=== PATIENT | male | born 2000 | race Caucasian/White ===

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

== ENCOUNTER 2019-04-05 13:41 | Emergency (ER) | payer OTHER, SELFPAY ==
[2019-04-05 13:42] VITALS: BP 141/86; PULSE 98; RESP 17; TEMP 36.8; O2SAT 95; BMI 26.1
--- NOTE | 2019-04-05 14:20 | CM.ED ---
SOCIAL WORK FORTUNATO FROM CRISIS HERE AND INFORMED THIS WORKER CRISIS WAS CALLED EARLIER THIS DAY BY PATIENT'S CHRISTIAN EDUCATION DIRECTOR, FARRAH BYRD. PATIENT VOICED HOMICIDAL IDEATION AND SUICIDAL IDEATION WITH PLAN TO HANG SELF. THIS WORKER TO FOLLOW UP WITH PHYSICIAN. MERA CARLIN, EDGE BANDING MACHINE OFFBEARER, DOCTOR OF AUDIOLOGY.
--- NOTE | 2019-04-05 14:35 | CM.ED ---
Social Work Assessment Referral Date: 04/05/19 Date of Assessment: 04/05/19 Informant: DR. TESFAYE Reason for Consult: MENTAL HEALTH, PATIENT WITH HOMICIDAL IDEATION, HEARING VOICES. Information obtained from: PATIENT, PATIENT'S MOTHER, RAUL, PATIENT'S SIGNIFICANT OTHER, DATASTAGE DEVELOPER AND SILK HANGER Living Arrangements: PATIENT LIVES HOME WITH FAMILY Supports: PATIENT HAS GOOD SUPPORT FROM MOTHER AND SIGNIFICANT OTHER. PATIENT REPORTS FOLLOWS WITH ONE [employer]Y FOR COUNSELING. Social/Family Stressors: PATIENT REPORTS THOUGHTS OF HOMICIDAL IDEATION AGAINST MULTIPLE PEOPLE. PATIENT DOES NOT GIVE NAMES. Mental Health History: PATIENT REPORTS HAS BEEN DIAGNOSED WITH SCHIZOAFFECTIVE DISORDER, DEPRESSION, ANXIETY, ALCOHOL SPECTRUM DISORDER. PATIENT REPORTS DOES NOT CURRENTLY TAKE ANY MEDICATION. Substance Abuse History:PATIENT ADMITS TO HX OF SUBSTANCE USE. Substance(s) of choice: MARIJUANA, HX OF OPIATE USE. Interventions: SOCIAL SERVICE ASSESSMENT PATIENT DENIES ANY SUICIDAL IDEATION OR PLAN TO THIS WORKER. PATIENT ADMITS TO HOMICIDAL IDEATION AND REPORTS HEARS VOICES. THIS WORKER TO ASSIST WITH PLACEMENT PATIENT IS VOLUNTARY AT THIS TIME. Assessment: PATIENT REQUESTED TO NOT SPEAK WITH CRISIS D/T PAST EXPERIENCES. DR. TESFAYE UPDATED THIS WORKER ON PATIENT'S VISIT AND REQUESTED THIS WORKER COMPLETE ASSESSMENT. PATIENT IS A 19 Y/0 MALE WHO PRESENTS WITH HOMICIDAL IDEATION. THIS WORKER MET WITH PATIENT, PATIENT'S MOTHER AND SIGNIFICANT OTHER IN ROOM. PATIENT GAVE PERMISSION TO SPEAK OPENLY WITH MOTHER AND SIGNIFICANT OTHER PRESENT. INTRODUCED ROLE AND REASON FOR REFERRAL. PATIENT ADMITS TO HOMICIDAL IDEATION AGAINST MULTIPLE PEOPLE. PATIENT DID NOT REPORT NAMES TO THIS WORKER. PATIENT DENIES ANY SUICIDAL IDEATION OR PLAN, HOWEVER, THIS WORKER WAS INFORMED BY DATASTAGE DEVELOPER PATIENT HAD REPORTED SUICIDAL IDEATION WITH PLAN TO HANG SELF WHEN CALL WAS MADE TO CRISIS EARLIER THIS DAY. PATIENT STATES HAS TRIED TO GET HELP IN THE PAST AND NOTHING HAS HELPED. PATIENT AT THIS TIME IS COOPERATIVE AND IS LOOKING FOR VOLUNTARY PLACEMENT. DISCUSSED OPTIONS. INFORMED PATIENT THIS WORKER WILL ASSIST WITH PLACEMENT. REFERRAL TO BE MADE TO [facility]. PLAN: INPATIENT PSYCH HOSPITALIZATION. REFERRAL TO [facility].
[2019-04-05 15:38] LABS: Anion Gap 10 (5-15); BUN 10 mg/dL (7-18); Calcium,Total 9.4 mg/dL (8.5-10.1); Chloride 105 mmol/L (98-107); Creatinine, Serum 0.77 mg/dL (0.70-1.30); EST Glomerular Filtration Rate 137 mL/min (>60); Est Glom Filt Rate - Afr Amer 165 mL/min (>60); Estimated Creatinine Clearance 172.94 ml/min; Glucose 97 mg/dL (74-106); Potassium 3.7 mmol/L (3.5-5.1); Sodium Level 141 mmol/L (136-145)
--- NOTE | 2019-04-05 15:40 | CM.ED ---
SOCIAL WORK THIS WORKER AWAITING LABS TO FAX TO [facility]. CALL TO [facility] TO UPDATE ON REFERRAL. BODY AND FENDER MECHANIC APPRENTICE REQUESTING ALL LABS, TOX SCREEN, FACESHEET AND ANY OTHER CLINICAL DOCUMENTATION BE FAXED TO [phone]. WILL FAX ALL INFORMATION ONCE RECEIVED. MERA CARLIN, ENVELOPE STAMPING MACHINE OPERATOR, GRAPE PRUNER.
[2019-04-05 15:46] LABS: Absolute Lymphocyte Count 2.33 X10^3/ul (0.83-4.51); Basophil# 0.02 X10^3/uL; Basophil% 0.2 % (0-1); Eosinophil# 0.18 X10^3/uL; Eosinophils% 1.9 % (0-5); Hemoglobin 17.3 g/dl (13.0-16.5); Lymphocyte # 2.33 X10^3/ul (4.0); Lymphocyte % 24.7 % (19-41); Mean Corpuscular Hgb 31.3 pg (27.0-32.0); Monocyte# 0.85 X10^3/uL; Neutrophil # 6.04 X10^3/uL (2.7-7.7); Neutrophil % 63.9 % (47-70); Platelet Count 324 K/mm3 (150-450); RBC Distribution Width CV 12.2 % (11.6-14.6); RBC Distribution Width SD 39.2 fl (35.1-43.9); Red Blood Count 5.52 M/mm3 (4.6-6.2); White Blood Count 9.5 K/mm3 (4.4-11.0)
[2019-04-05 15:47] LABS: POSITIVE COUNT NO; POSITIVE DIFFERENTIAL NO; POSITIVE MORPHOLOGY NO
--- NOTE | 2019-04-05 16:10 | CM.ED ---
SOCIAL WORK UPDATED BY PATIENT'S NURSE, PATIENT ESCALATING D/T PLAN OF CARE. PATIENT WANTING TO FIND OWN PLACEMENT OUT OF STATE. NURSE AND THIS WORKER ATTEMPTED TO DISCUSS PROCESS AND LIMITATIONS IN THE EMERGENCY DEPARTMENT. PATIENT STATING HE DOES NOT FEEL LIKE HE IS GETTING THE HELP HE ANTICIPATED WHEN HE FIRST CAME TO THE EMERGENCY DEPARTMENT. THIS WORKER PROVIDED ACTIVE LISTENING AND SUPPORT. PATIENT'S SIGNIFICANT OTHER STORMED OUT OF ROOM SLAMMING DOOR BEHIND HER. PATIENT BECOMING UPSET, CRYING AND YELLING. UPDATED PHYSICIAN ON THE ABOVE. PATIENT PINK SLIPPED. NURSE AND RESOURCE OFFICER TO UPDATE PATIENT. MERA CARLIN, BIG DATA DEVELOPER, BREWERY REPRESENTATIVE.
[2019-04-05] MEDS: Ziprasidone IM 20 MG/ML VIAL IM (16:17)
[2019-04-05 16:18] VITALS: RESP 16
--- NOTE | 2019-04-05 16:30 | ED.RN ---
PATIENT BECAME UPSET AND STARTED TO ESCALATE REGARDING HIS PLAN OF CARE IN THE ER AND FOR PLACEMENT. SW NOTIFIED AND PATIENT STATED THAT HE WAS OPEN TO THE PLAN OF [facility] ATTEMPTING TO FIND PLACEMENT AT [facility]. PATIENT THEN STARTED TO BECOME UPSET STATING THAT HE WAS BEING RUSHED, NEEDED CHOICES, AND WANTING TO GO OUT OF STATE. THIS NURSE ATTEMPTED TO EDUCATE THE PATIENT ON THE PROCESSES AND LIMITATIONS OF THE ER. PATIENT BECAME MORE AGITATED. MD NOTIFIED AND ORDER FOR JESSIE LOCKE. RESOURCE OFFICER AND THIS NURSE NOTIFIED THE PATIENT THAT HE WAS PINK SLIPPED AND AND PATIENT PROCEEDED TO CLAW AT HIS FOREHEAD AND LEAVE ABRASIONS. SW TO CONTINUE TO WORK ON PLACEMENT AND PATIENT MOVED TO ROOM NEAR NURSES STATION.
[2019-04-05 16:33] LABS: Amphetamine Urine VISTA NEGATIVE (<1000 ng/mL); Barbiturate Urine VISTA NEGATIVE (< 200 ng/mL); Benzodiazepine Urine VISTA NEGATIVE (< 200 ng/mL); Cocaine Urine VISTA NEGATIVE (< 300 ng/mL); Ecstacy Urine VISTA NEGATIVE (< 500 ng/mL); Methadone Urine VISTA NEGATIVE (< 300 ng/mL); PCP Urine VISTA NEGATIVE (< 25 ng/mL); THC Urine VISTA POSITIVE (< 50 ng/mL); Vista UDS pH Range 7
--- NOTE | 2019-04-05 17:20 | CM.ED ---
SOCIAL WORK CALL TO [facility] TO VERIFY REFERRAL RECEIVED. INFORMED PATIENT HAS BEEN PINK SLIPPED. MATCH UP PERSON STATES PRINTING OFF REFERRAL AT THIS TIME TO REVIEW. COPY OF PINK SLIPPED FAXED TO [facility] PER REQUEST. AMBROSE ZAMORA, FOOD AND BEVERAGE COORDINATOR. AMBROSE ZAMORA, FOOD AND BEVERAGE COORDINATOR.
--- NOTE | 2019-04-05 17:45 | ED.VISSUMM ---
- ER Visit Summary Date of Service: 04/05/19 Chief Complaint: Suicidal and homicidal ideation History of Present Illness: The patient is a 19 M who presents with agitation and feeling angry today. Patient states he feels angry and thinks he may hit people. Patient states he hears voices telling him to punch other people and get into a fight with the first person he sees. Patient states he is under stress with his landing signal officer. Patient states that he has smoked marijuana in the past to help with the stress however since he is on probation he is unable to do that. Currently patient states he denies any suicidal or homicidal ideations. However, it was found out that the patient called his landing signal officer earlier today and told him he was having suicidal thoughts and thinking of hanging himself. consumer safety officer called the crisis center who referred the patient to the emergency department. Physical Examination: Vital signs are stable. Patient is afebrile. Patient is in no acute distress. Oral mucosa is pink and moist. Neck is supple. Trachea is midline. There is no JVD noted. Heart was regular rate and rhythm. Lungs are clear and equal bilaterally. Abdomen is soft and nontender. Cranial nerves II through XII are intact. There are no focal motor or sensory deficits noted. Skin is warm dry. There are superficial abrasions on the forehead. There are no other lacerations or abrasions noted. Patient does have a flat affect and depressed mood. Patient has poor eye contact. Patient does admit to auditory hallucinations. Test Results: CBC, basic metabolic profile, urine tox screen, and serum alcohol level were obtained. Urine tox screen was positive for cannabinoids however the remaining labs are within normal limits. Emergency Department Course and Treatment: Patient was observed here in the emergency department. Patient became more agitated during his emergency department stay and wanted to leave. Patient was told that he needs to stay until he is evaluated by mental health. Initially patient was agreeable to voluntary admission however, he changed his mind and became more agitated. Patient was given a dose of Geodon here in the emergency department. Patient is now sleeping on reevaluation. Crisis counselor will be in to evaluate the patient. Disposition: Pending per crisis evaluation but patient will likely need to be admitted to a psychiatric facility. Impression: 1. Suicidal ideation 2. Agitation This note was generated with [employer] dictation software. It may contain incorrect words, spelling, and punctuation that were not noted in review of the chart prior to signing ED Disposition - Plan for ED Patient: Diagnosis: Suicidal ideation, Agitation Referrals: Care Physician,No Primary [Primary Care Provider] -
--- NOTE | 2019-04-05 17:50 | ED.DCSUM_ITS ---
- ER Visit Summary Date of Service: 04/05/19 Chief Complaint: Suicidal and homicidal ideation History of Present Illness: The patient is a 19 M who presents with agitation and feeling angry today. Patient states he feels angry and thinks he may hit people. Patient states he hears voices telling him to punch other people and get into a fight with the first person he sees. Patient states he is under stress with his risk officer. Patient states that he has smoked marijuana in the past to help with the stress however since he is on probation he is unable to do that. Currently patient states he denies any suicidal or homicidal ideations. However, it was found out that the patient called his risk officer earlier today and told him he was having suicidal thoughts and thinking of hanging himself. community service officer called the crisis center who referred the patient to the emergency department. Physical Examination: Vital signs are stable. Patient is afebrile. Patient is in no acute distress. Oral mucosa is pink and moist. Neck is supple. Trachea is midline. There is no JVD noted. Heart was regular rate and rhythm. Lungs are clear and equal bilaterally. Abdomen is soft and nontender. Cranial nerves II through XII are intact. There are no focal motor or sensory deficits noted. Skin is warm dry. There are superficial abrasions on the forehead. There are no other lacerations or abrasions noted. Patient does have a flat affect and depressed mood. Patient has poor eye contact. Patient does admit to auditory hallucinations. Test Results: CBC, basic metabolic profile, urine tox screen, and serum alcohol level were obtained. Urine tox screen was positive for cannabinoids however the remaining labs are within normal limits. Emergency Department Course and Treatment: Patient was observed here in the emergency department. Patient became more agitated during his emergency department stay and wanted to leave. Patient was told that he needs to stay until he is evaluated by mental health. Initially patient was agreeable to voluntary admission however, he changed his mind and became more agitated. Patient was given a dose of Geodon here in the emergency department. Patient is now sleeping on reevaluation. Crisis counselor will be in to evaluate the patient. Disposition: Pending per crisis evaluation but patient will likely need to be admitted to a psychiatric facility. Impression: 1. Suicidal ideation 2. Agitation This note was generated with [employer] dictation software. It may contain incorrect words, spelling, and punctuation that were not noted in review of the chart prior to signing ED Disposition - Plan for ED Patient: Diagnosis: Suicidal ideation, Agitation Referrals: Care Physician,No Primary [Primary Care Provider] -
--- NOTE | 2019-04-05 17:57 | CM.ED ---
SOCIAL WORK RECEIVED CALL FROM [facility]. PATIENT ACCEPTED TO [facility]. ACCEPTING PHYSICIAN DR. PARISH. NURSE TO [phone]. UPDATED STAFF, PHYSICIAN, AND PATIENT'S MOTHER, RAUL. PATIENT REMAINS SLEEPING. MERA CARLIN, HIGH SCHOOL LEARNING SUPPORT TEACHER, ANTIQUE AUTO MUSEUM MAINTENANCE WORKER.
--- NOTE | 2019-04-05 18:06 | NURSING ---
ACCEPTED AT [facility]
--- NOTE | 2019-04-05 18:11 | NURSING ---
CALLED [facility]. ETA IS 45 MIN TO 1 HR
--- NOTE | 2019-04-05 18:13 | NURSING ---
CRISIS HERE FOR PATIENT
[2019-04-05 19:07] VITALS: RESP 18
== END 2019-04-05 19:25 ==
LOC: ED 14:21
PROVIDERS: Emergency Provider Emergency Medicine
DX: R45.851 Suicidal ideations (principal); R45.850 Homicidal ideations; R45.1 Restlessness and agitation; F12.90 Cannabis use, unspecified, uncomplicated; Z72.0 Tobacco use
CPT/HCPCS: 80048; 80307; 80320; 85025; 96372; 99283; G0480; J3486

== ENCOUNTER 2019-06-27 22:31 | Emergency (ER) | payer OTHER, SELFPAY ==
[2019-06-27 22:34] VITALS: BP 136/75; PULSE 120; RESP 16; TEMP 36.8; O2SAT 98; BMI 26.4
[2019-06-27 23:03] LABS: Absolute Neutrophil Count 9.6 X10^3/uL (2.0-7.7); Basophil# 0.04 X10^3/uL; Basophil% 0.3 % (0-1); Eosinophil# 0.28 X10^3/uL; Eosinophils% 2.2 % (0-5); Hematocrit 45.9 % (40-54); Hemoglobin 15.9 g/dL (13.0-16.5); Lymphocyte % 15.8 % (19-41); Mean Corp Hgb Conc 34.6 g/dL (32-36); Mean Corpuscular Hgb 30.6 pg (27.0-32.0); Mean Corpuscular Volume 88.3 fL (80-94); Mean Platelet Vol. 9.4 fl (6.2-12.0); Monocyte# 0.74 X10^3/uL; Monocyte% 5.8 % (0-10); NRBC Flagged by Analyzer 0 % (0-5); Neutrophil # 9.55 X10^3/uL (2.7-7.7); Neutrophil % 75.6 % (47-70); Platelet Count 351 K/mm3 (150-450); RBC Distribution Width CV 11.9 % (11.6-14.6); White Blood Count 12.7 K/mm3 (4.4-11.0)
[2019-06-27 23:29] LABS: ALB/GLOB Ratio 1.4 RATIO (0.9-2.4); AST(SGOT) 12 U/L (15-37); Alanine Aminotransfer ALT/SGPT 21 U/L (16-61); Albumin, Serum 4.5 g/dL (3.2-5.0); Alcohol, Blood (Medical)-Serum < 3.0 mg/dL; Alkaline Phosphatase 96 U/L (45-117); Anion Gap 7 (5-15); BUN 9 mg/dL (7-18); BUN/Creat Ratio 8.7 RATIO (10-20); Calcium,Total 9.1 mg/dL (8.5-10.1); Chloride 111 mmol/L (98-107); Creatinine, Serum 1.04 mg/dL (0.70-1.30); EST Glomerular Filtration Rate 96 mL/min (>60); Est Glom Filt Rate - Afr Amer 117 mL/min (>60); Estimated Creatinine Clearance 128.04 ml/min; Globulin 3.3 g/dL (2.2-4.2); Glucose 104 mg/dL (74-106); Potassium 3.5 mmol/L (3.5-5.1); Protein, Total 7.8 g/dL (6.4-8.2); Sodium Level 143 mmol/L (136-145)
[2019-06-27 23:30] LABS: Vista UDS pH Range 6
[2019-06-27 23:31] VITALS: RESP 17
--- NOTE | 2019-06-27 23:39 | ED.DCSUM_ITS ---
- ER Visit Summary Date of Service: 06/27/19 Chief Complaint: Suicidal History of Present Illness: The patient is a 19 M who was pink slipped by police. The patient had made threats of suicide to his fianc?e and mother recently. Today they had to try to restrain him from hanging himself. Police found him in his garage with a rope around his neck. He did not attempt to hang himself. He has a history of schizoaffective disorder. He uses marijuana, but denies other drug use or regular alcohol use. He has no medical complaints. Physical Examination: Afebrile and vital signs are unremarkable except for initial heart rate of 120. On my exam, heart rate is normal. Lungs are clear. Skin appears normal. Neck is atraumatic. HEENT exam unremarkable. Alert and oriented. Poor eye contact. Depressed mood and flat affect. Test Results: White count 12.7 but otherwise CBC, CMP unremarkable. Tox screen still pending. Alcohol is negative. Emergency Department Course and Treatment: Patient had psychiatric precautions. He had a pink slip completed by police. He had no evidence of trauma or abnormal findings to his neck. His medical clearance testing has been unremarkable. Tox screen is pending. I believe that the patient will need inpatient care. Crisis contacted to evaluate the patient. We are awaiting their evaluation and placement. He is medically cleared for transfer and admission at a psychiatric facility. Treatment Plan: Above Disposition: Transfer pending Impression: 1. Suicidal ideation This note was generated with [employer] dictation software. It may contain incorrect words, spelling, and punctuation that were not noted in review of the chart prior to signing ED Disposition - Plan for ED Patient: Referrals: Care Physician,No Primary [Primary Care Provider] -
--- NOTE | 2019-06-27 23:44 | ED.RN ---
CALLED CRISIS TO SEE THIS PT, ABY IS ACID MAKER
[2019-06-27 23:53] LABS: Amphetamine Urine VISTA NEGATIVE (<1000 ng/mL); Barbiturate Urine VISTA NEGATIVE (< 200 ng/mL); Benzodiazepine Urine VISTA NEGATIVE (< 200 ng/mL); Cocaine Urine VISTA NEGATIVE (< 300 ng/mL); Ecstacy Urine VISTA NEGATIVE (< 500 ng/mL); Methadone Urine VISTA NEGATIVE (< 300 ng/mL); PCP Urine VISTA NEGATIVE (< 25 ng/mL); THC Urine VISTA POSITIVE (< 50 ng/mL)
--- NOTE | 2019-06-27 23:54 | ED.RN ---
PT NOTIFIED THAT CRISIS MEMBER WILL BE IN TO SEE HIM.
[2019-06-28] VITALS (8 sets, daily range): BP systolic 148–154; BP diastolic 86–92; PULSE 85–103; RESP 14–18; O2SAT 99–100
--- NOTE | 2019-06-28 00:17 | ED.RN ---
CRISIS ON SITE, REPORT PACK GIVEN FOR EVALUATION
--- NOTE | 2019-06-28 03:47 | ED.RN ---
CALLED FOR TRANSPORT AFTER ACCEPTANCE, [facility] ACCEPTED TRANSPORT, ETA [phone]
== END 2019-06-28 08:10 ==
PROVIDERS: Emergency Provider Emergency Medicine
DX: R45.851 Suicidal ideations (principal); F25.9 Schizoaffective disorder, unspecified; F12.90 Cannabis use, unspecified, uncomplicated; Z72.0 Tobacco use
CPT/HCPCS: 36415; 80053; 80307; 80320; 85025; 99284; G0480

== ENCOUNTER 2019-12-20 23:08 | Emergency (ER) | payer OTHER, SELFPAY ==
[2019-12-20 23:09] VITALS: BP 126/90; PULSE 90; RESP 18; TEMP 36.8; O2SAT 96; BMI 27.3
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
--- NOTE | 2019-12-20 23:22 | ED.DCSUM_ITS ---
History of Present Illness Chief Complaint: Head Injury Informant: Patient Onset: Today Current Severity: Mild Maximum Severity: Moderate Narrative: Patient presents with right-sided head injury. Around 930 tonight patient tripped over an extension cord and struck his right confucianist against a door handle. He did not lose consciousness but felt like he was going to pass out. He has had some mild nausea but no vomiting. Patient reports a history of multiple concussions in the past. - Past Medical History (1) Schizoaffective disorder Status: Chronic (2) Depression Status: Chronic (3) History of multiple concussions Status: Chronic Past Medical History - Allergies and Home Meds Allergies/Adverse Reactions: Allergies No Known Allergies Allergy (Verified 12/20/19 23:11) Primary Care Physician: Care Physician,No Primary [Primary Care Provider] - Prior records reviewed: Yes Lives: With Family Smoking Status: Current every day smoker Review of Systems General: Denies: Chills, Fever Eyes: Denies: Visual changes - bilaterally ENT: Denies: Bilateral ear pain Cardiovascular: Denies: Chest pain Respiratory: Denies: Dyspnea, Cough Gastrointestinal: Reports: Nausea. Denies: Abdominal pain, Vomiting Genitourinary: Denies: Dysuria Musculoskeletal: Denies: Myalgias Skin: Denies: Rash Neurological: Reports: Headache. Denies: Weakness, Parasthesia Psych: Denies: Depression Allergy: Denies: Uticaria Physical Exam Vital Signs/Narrative: Vital Signs Temp Pulse Resp BP Pulse Ox 12/20/19 23:09 98.3 F 90 18 126/90 H 96 Inital Vital Signs reviewed: Yes General: Well nourished, Well developed Head: Normocephalic ENT: Moist mucous membranes Neck: Supple Cardiovascular: Regular rate, Regular rhythm Respiratory: No distress, CTA bilaterally Abdomen: Soft, Nontender Back: Nontender Extremities: Nontender Skin: Normal color, No rash Neurological: Alert, Oriented x3 Psychological: Normal affect Diagnostic/Tx/Re-eval Impressions Brain CT 12/20/19 23:21 IMPRESSION: Negative unenhanced CT scan of the brain. No significant interval change. Electronically Signed: Nikolai Rosas, at 0:26 EST Tel , Service support , 12/20/19 23:21 CT Head [Brain/Head without Contrast] [CT] Stat - Medical Decision Making Patient had taken Excedrin prior to arrival for headache. CT the head is unremarkable. Patient be discharged home with close head injury instructions. ED Disposition - Plan for ED Patient: Disposition: Home or Assisted Living Diagnosis: Closed head injury Instructions: HEAD INJURY, No Wake-Up (Adult) Referrals: Jovon Junior MD [STAFF PHYSICIAN] - As Needed
== END 2019-12-21 00:45 | disposition home or self-care (01) ==
PROVIDERS: Emergency Provider Emergency Medicine
DX: S09.90XA Unspecified injury of head, initial encounter (principal); W18.09XA Striking against other object with subsequent fall, initial encounter; Y93.9 Activity, unspecified; Y92.9 Unspecified place or not applicable; F17.200 Nicotine dependence, unspecified, uncomplicated
CPT/HCPCS: 70450; 99282

== ENCOUNTER 2021-03-14 06:15 | Emergency (ER) | payer OTHER, SELFPAY ==
[2021-03-14 06:15] VITALS: BP 150/99; PULSE 111; RESP 16; TEMP 37.1; O2SAT 95; BMI 29.7
--- NOTE | 2021-03-14 06:24 | RAD_ITS ---
STUDY: X-RAY - LEFT KNEE REASON FOR EXAM: Male, 21 years old. left knee pain x 3 months. NKI. TECHNIQUE: 5 view(s) of the knee. COMPARISON: None. FINDINGS: Normal visualized distal femur. Normal visualized proximal tibia and fibula. Normal proximal tibiofibular articulation. Normal medial femorotibial compartment. Normal lateral femorotibial compartment. Normal patellofemoral articulation. The soft tissue structures are unremarkable. RAD/Knee 4 or More Views IMPRESSION: Normal x-ray examination of the knee. Electronically Signed: Steve Salas MD at 6:54 EDT Tel , Service support ,
[2021-03-14] MEDS: Ibuprofen 600 MG Tablet PO (06:26)
--- NOTE | 2021-03-14 07:38 | ED.VIS.LOWEX ---
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 He states he does not remember ever injuring it. He states he walks around the neighborhood a lot, and he bowls frequently. [facility] Medical History (Updated 03/14/21 @ 07:[address] Washington Lee MD) Depression History of multiple concussions Schizoaffective disorder Home Medications naproxen 500 mg PO BID #20 tab 03/14/21 [Rx Last Taken Unknown] Allergy/AdvReac Type Severity Reaction Status Date / Time No Known Allergies Allergy Verified 03/14/21 06:17 Social History Smoking Status: Current every day smoker ROS ROS ED Constitutional Constitutional ED: Denies chills or fever(s) Musculoskeletal Musculoskeletal: Reports extremity pain; Denies neck pain Integumentary Denies Abrasions, rash or wounds Neurologic Neurologic: Denies paresthesias or weakness EXAM Physical Exam Const Vital Signs: 03/14/21 06:15 Temperature 98.7 F Temperature Source Temporal Pulse Rate 111 H Respiratory Rate 16 Blood Pressure 150/99 H Blood Pressure Mean 116 Pulse Ox 95 Positive well nourished and well developed General Appearance ED: well developed and NAD Neck full ROM and supple Cardio peripheral pulses 2+ throughout Cardio Narrative: Left lower extremity posterior tibial pulses 2+ Back/Spine normal ROM and normal to inspection Extremity Extremity Narrative: Left knee: Limited range of motion due to pain. Extensor mechanism intact and able to straighten fully without difficulty. No effusion. Diffusely mildly tender, but mostly in the popliteal fossa including the hamstring tendons. Normal inspection, no more warm than surrounding leg and thigh, no erythema or skin abnormalities. All ligaments stable, limited evaluation of ACL/PCL due to his limited ability to bend the knee. Neuro oriented x3, no focal motor deficits and no sensory deficits noted Sensorium / Orientation: alert Psych mental status grossly normal and thought process normal Skin no wounds Rashes: no rashes MDM MDM MDM Narrative Medical decision making narrative: On my interpretation 4 view x-ray series of the left knee shows no acute abnormality. Radiology is in agreement. Differential here is fairly broad with regards to musculoskeletal problems of the knee, which also includes a Bakers cyst. He does not have any edema or calf tenderness, nor does he have risk for DVT and I do not think that he has a DVT causing this pain. He presents had an hour where vascular ultrasound is not available. I reassured him that this is not likely limb threatening, I do not think he has a septic joint or gout, I think follow-up with orthopedics would be reasonable, an MRI would probably answer the question but not able to be obtained emergently at this time for this problem. We discussed RICE and he already has crutches at home, he was given an Bebo wrap and a prescription for Naprosyn. Referred to orthopedics on-call. Radiography Diagnostic Testing: Radiology Impression Knee X-Ray 03/14/21 06:24 IMPRESSION: Normal x-ray examination of the knee. Electronically Signed: Steve Salas MD at 6:54 EDT Tel , Service support , Discharge Plan Triage Chief Complaint: Lower Extremity Injury ED Provider: Washington Lee Dx/Rx/DC Orders Clinical Impression: Acute pain of left knee Instructions: ED Knee Pain of Uncertain Cause Prescriptions: New naproxen 500 MG tablet 500 mg PO BID Qty: 20 RF: 0 Primary Care Provider: Care Physician,No Primary Referrals: Mathew Smiley DO [STAFF PHYSICIAN] - (call for appt) Disposition Disposition: Home, self care
[2021-03-14] MEDS: Naproxen 250 MG Tablet 500 MG PO (08:08)
[2021-03-14 08:11] VITALS: PULSE 86; RESP 17; O2SAT 98
== END 2021-03-14 08:11 | disposition home or self-care (01) ==
PROVIDERS: Emergency Provider Emergency Medicine
DX: M25.562 Pain in left knee (principal); F17.200 Nicotine dependence, unspecified, uncomplicated
CPT/HCPCS: 73564; 99283

== ENCOUNTER 2021-07-26 10:43 | Emergency (ER) | payer OTHER, SELFPAY ==
[2021-07-26 10:44] VITALS: BP 134/90; PULSE 93; RESP 16; TEMP 35.7; O2SAT 94; BMI 31.1
[2021-07-26 10:55] VITALS: BP 128/75; PULSE 71; RESP 16; TEMP 37.2; O2SAT 96
--- NOTE | 2021-07-26 11:07 | RAD_ITS ---
STUDY: X-RAY CHEST REASON FOR EXAM: Male, 21 years old. Cough. TECHNIQUE: Single AP portable view of the chest. COMPARISON: 08/18/2015 FINDINGS: Minimally decreased inspiratory effort. There is no new infiltrate or mass. There is no demonstrated pleural abnormality. Normal size heart. Normal mediastinum and codie. Normal visualized pulmonary arteries. Normal visualized aortic arch and descending thoracic aorta. Normal visualized thoracic spine. Normal visualized ribs, clavicles, and shoulders. There is no demonstrated abnormality of the visualized soft tissue structures of the upper abdomen. RAD/Chest 1 View (Portable) IMPRESSION: No acute cardiopulmonary disease. Electronically Signed: Scooter Roland DO at 11:32 EDT Tel [phone], Service support ,
--- NOTE | 2021-07-26 11:07 | EKG12_ITS ---
Test Reason : COLD Blood Pressure : / mmHG Vent. Rate : 065 BPM Atrial Rate : 065 BPM P-R Int : 154 ms QRS Dur : 094 ms QT Int : 400 ms P-R-T Axes : 048 028 032 degrees QTc Int : 416 ms Normal sinus rhythm Normal ECG Confirmed by AMADA CHEUNG, FRITZ ([id number]), editorial writer COLEEN CHILDRESS ([id number]) on 07/31/2021 7:28:08 AM Referred By: REBEKA Confirmed By:FRITZ YBARRA MD
--- NOTE | 2021-07-26 13:09 | EDS_ITS ---
HPI History of Present Illness Chief Complaint: Cold Sx Narrative Narrative: Patient is a 21-year-old male who states he was at a democrat with approximately 20 other people. He stated after this democrat he noticed that he had mild congestion and cough and decreased taste and smell. He also reports he has had mild chest discomfort. He does state that he smokes but denies any need for supplemental oxygen. He reports he is not vaccinated against Covid but does have concern for this based on his symptoms and therefore comes in for evaluation [facility] Medical History Depression History of multiple concussions Schizoaffective disorder Allergy/AdvReac Type Severity Reaction Status Date / Time No Known Allergies Allergy Verified 07/26/21 11:01 Social History Smoking Status: Current every day smoker tobacco type: cigarettes ROS ROS ED Constitutional Constitutional ED: Denies chills or fever(s) ENT ENT ED: Reports sore throat Cardiovascular Cardiovascular: Reports chest pain Respiratory/Chest Respiratory/Chest: Reports cough; Denies dyspnea Gastrointestinal Gastrointestinal: Denies abdominal pain, diarrhea, nausea or vomiting Genitourinary Genitourinary ED: Denies dysuria Musculoskeletal Musculoskeletal: Denies myalgias Integumentary Denies rash Neurologic Neurologic: Denies headache(s) Hematologic/Lymphatic Hematologic/Lymphatic: Denies easy bleeding or easy bruising EXAM Physical Exam Const Vital Signs: 07/26/21 10:44 07/26/21 10:55 07/26/21 11:04 Temperature 96.2 F L 98.9 F Temperature Source Temporal Oral Pulse Rate 93 71 Respiratory Rate 16 16 Respiratory Effort Normal Respiratory Depth Normal Respiratory Pattern Normal Blood Pressure 134/90 H 128/75 H Blood Pressure Mean 104 92 Pulse Ox 94 96 Oxygen Delivery Method Room Air Room Air Positive well nourished and well developed General Appearance ED: well developed HEENT Reports moist mucous membranes HEENT Narrative: Cobblestoning the posterior pharynx consistent with sinus drainage but no airway edema or compromise Eyes PERRL and EOMs intact bilaterally Neck supple Neck Narrative: Positive anterior cervical lymphadenopathy noted Chest Wall palpation of chest normal Resp normal respiratory effort and clear to auscultation bilaterally Cardio regular rate and regular rhythm GI normal to inspection, nondistended, normoactive bowel sounds, non-tender and non-distended Auscultation: normoactive bowel sounds Palpation: soft Extremity normal to inspection Neuro oriented x3 and CN's II-XII intact bilaterally Sensorium / Orientation: alert Psych mental status grossly normal Skin no rashes or lesions noted MDM MDM MDM Narrative Medical decision making narrative: Patient presented to the ER afebrile and in no acute respiratory distress with room air pulse ox in the mid 90s. His constellation of symptoms is concerning for viral infection mainly Covid. A chest x-ray was obtained which shows no obvious infiltrate and EKG revealed no ischemic changes. His rapid Covid was negative but this could be related to his early presentation. However at this time as he does not have changes for respiratory distress or need for supplemental oxygen he is safe for discharge an d can follow-up with family doctor or return to the ER if symptoms fail to improve or start to worsen Radiography Diagnostic Testing: Radiology Impression Chest X-Ray 07/26/21 11:07 IMPRESSION: No acute cardiopulmonary disease. Electronically Signed: Scooter Roland DO at 11:32 EDT Tel [phone], Service support , Discharge Plan Triage Chief Complaint: Cold Sx ED Provider: Jayden Syed Dx/Rx/DC Orders Clinical Impression: Viral upper respiratory illness Instructions: ED URI, Viral, No Abx (Adult) Primary Care Provider: Care Physician,No Primary Referrals: Marisa Roca MD [STAFF PHYSICIAN] - 3-5 Days if not improving Care Physician,No Primary [Primary Care Provider] - Disposition Disposition: Home, Self Care
[2021-07-26 13:27] VITALS: BP 129/74; PULSE 78; RESP 16; O2SAT 97
== END 2021-07-26 13:28 | disposition home or self-care (01) ==
PROVIDERS: Emergency Provider Emergency Medicine
DX: J06.9 Acute upper respiratory infection, unspecified (principal); F17.210 Nicotine dependence, cigarettes, uncomplicated
CPT/HCPCS: 71045; 87426; 93005; 99282

== ENCOUNTER 2021-08-13 17:54 | Emergency (ER) | payer OTHER, SELFPAY ==
[2021-08-13 17:55] VITALS: BP 157/104; PULSE 126; RESP 18; TEMP 35.7; O2SAT 94; BMI 29.0
--- NOTE | 2021-08-13 18:12 | EKG12_ITS ---
Test Reason : CHEST TIGHTNESS Blood Pressure : / mmHG Vent. Rate : 102 BPM Atrial Rate : 102 BPM P-R Int : 134 ms QRS Dur : 092 ms QT Int : 336 ms P-R-T Axes : 077 069 040 degrees QTc Int : 437 ms Sinus tachycardia Otherwise normal ECG Confirmed by ANDREWS CHEUNG, ELIZABETH ([id number]), news video editor COLEEN CHILDRESS ([id number]) on 08/18/2021 6:48:05 AM Referred By: SOFIA Confirmed By:ELIZABETH SPARROW MD
--- NOTE | 2021-08-13 18:41 | EX.ED.VIS.UR ---
HPI HPI - URI History of Present Illness Chief Complaint: Chest Pain Narrative Narrative: 21-year-old male presenting with cough, shortness of breath. He states this is been ongoing since Tuesday of this week which would make it 5 days ago. Patient has not had a fever. He states he has trouble taking a deep inspiration. He does not have chest pain but does have upper back pain. He has shortness of breath with exertion. Patient previously seen on 07/26/2021 for symptoms of similar nature and he states that he lost his taste and smell on that visit. This has returned. He states that he completely recovered from that and now has something new. He denies any history of DVT/PE. He denies any cardiac history. Patient has no history of asthma or reactive airway. Patient does state that he has some posttussive emesis at times but is able to eat and drink food and water. He is making urine and stool. ROS ROS ED Constitutional Constitutional ED: Denies chills, fever(s) or sweats Eyes Eyes: Denies blurry vision or change in vision ENT ENT ED: Denies ear pain or sore throat Cardiovascular Cardiovascular: Denies chest pain, palpitations or racing heartbeat Respiratory/Chest Respiratory/Chest: Reports cough and dyspnea; Denies sputum Gastrointestinal Gastrointestinal: Denies abdominal pain, constipation, diarrhea, nausea or vomiting Genitourinary Genitourinary ED: Denies dysuria, hematuria or urinary frequency Musculoskeletal Musculoskeletal: Denies arthralgias, myalgias or neck pain Integumentary Denies abscess, Abrasions or rash Neurologic Neurologic: Denies headache(s), paresthesias or weakness Psychiatric Psychiatric: Denies anxiety, depression, suicidal ideation or suicidal thoughts Endocrine Endocrinology: Denies polydipsia or polyuria [facility] Medical History Depression History of multiple concussions Schizoaffective disorder Home Medications albuterol sulfate 2 inh INHALATION Q4H PRN #1 ea 08/13/21 [Rx Last Taken Unknown] prednisone 50 mg PO DAILY 5 Days #5 tab 08/13/21 [Rx Last Taken Unknown] Allergy/AdvReac Type Severity Reaction Status Date / Time No Known Allergies Allergy Verified 08/13/21 17:55 Social History Smoking Status: Current every day smoker tobacco type: cigarettes EXAM Physical Exam Const Vital Signs: 08/13/21 17:55 08/13/21 18:07 08/13/21 18:45 Temperature 96.3 F L Temperature Source Temporal Pulse Rate 126 H Respiratory Rate 18 Respiratory Effort Normal Non-Labored Respiratory Pattern Blood Pressure 157/104 H Blood Pressure Mean 121 Pulse Ox 94 Oxygen Delivery Method Room Air Room Air 08/13/21 19:15 Temperature Temperature Source Pulse Rate 102 H Respiratory Rate 20 H Respiratory Effort Respiratory Pattern Normal Blood Pressure Blood Pressure Mean Pulse Ox Oxygen Delivery Method Positive well nourished, alert and oriented x3 General Appearance ED: Negative for pallor HEENT Reports normocephalic, head/scalp atraumatic and moist mucous membranes Eyes PERRL and EOMs intact bilaterally Neck no lymphadenopathy and supple Chest Wall inspection of chest normal and palpation of chest normal Resp normal respiratory effort and no use of accessory muscles Auscultation: wheezes scattered wheezes; Negative for rales or rhonchi Cardio regular rate and regular rhythm GI normal to inspection, nondistended, normoactive bowel sounds and non-distended Auscultation: normoactive bowel sounds Palpation: soft Narrative: Deferred Back/Spine no CVA tenderness General Back: Negative for CVA tenderness Cervical Spine: Negative for cervical spine tenderness Extremity normal to inspection General Extremety ED: Negative for edema or tenderness General Extremity: Negative for edema Neuro oriented x3 and CN's II-XII intact bilaterally Sensorium / Orientation: alert Motor Exam: strength 5/5 throughout Psych mental status grossly normal Attitude: No agitated Skin no rashes or lesions noted and no wounds General Skin Exam: Negative for jaundice or pallor MDM MDM MDM Narrative Medical decision making narrative: Patient presenting with wheezing and a cough. He does not have asthma but states that he does need albuterol sometimes when he has a cold. He was recently tested for COVID-19 on his last visit. He states his symptoms resolved from this and he has been sick again since Tuesday. He describes upper back pain but denies any central chest pain or pressure. EKG on my interpretation shows a sinus tachycardia with a ventricular rate of 102 bpm. Troponin is 4. I have low suspicion for ACS and I do not believe he needs a repeat EKG or troponin. D-dimer is negative which makes it unlikely that he has a PE or COVID-19. Renal function electrolytes are normal. Chest x-ray on my interpretation shows no acute cardiopulmonary process and the radiologist does agree. After receiving Solu-Medrol and breathing treatments the patient feels improved. I did have a Covid PCR sent which is pending. Patient will quarantine until results and he is counseled on quarantine precautions. He is given return precautions. Patient is discharged home in stable condition. Impression: 1. Viral syndrome 2. Acute bronchitis with wheezing Lab Data Labs: Laboratory Results - last 24 hr 08/13/21 08/13/21 08/13/21 18:41 18:41 18:41 WBC 14.1 H RBC 5.62 Hgb 17.1 H Hct 48.1 MCV 85.6 MCH 30.4 MCHC 35.6 RDW Std Deviation 36.4 RDW Coeff of Abran 11.9 Plt Count 333 MPV 8.8 Immature Gran % (Auto) 0.200 Neut % (Auto) 71.6 H Lymph % (Auto) 14.3 L [place] % (Auto) 8.9 Eos % (Auto) 4.7 Baso % (Auto) 0.3 Absolute Neuts (auto) 10.1 H Absolute Lymphs (auto) 2.02 Nucleated RBC % 0 D-Dimer Quant (PE/DVT) 0.29 Sodium 137 Potassium 3.8 Chloride 102 Carbon Dioxide 28.0 Anion Gap 7 BUN 10 Creatinine 0.84 Estim Creat Clear Calc 155.89 Est GFR (MDRD) Af Amer 146 Est GFR (MDRD) Non-Af 121 BUN/Creatinine Ratio 11.9 Glucose 102 Calcium 9.3 Troponin I High Sens 4 Radiography Diagnostic Testing: Clinical Impression(s) from Imaging Studies Chest X-Ray 08/13/21 19:00 IMPRESSION: Normal x-ray examination of the chest. Electronically Signed: Quentin Myles DO at 19:49 EDT Tel [phone], Service support , Discharge Plan Triage Chief Complaint: Chest Pain ED Provider: Bud Grace Dx/Rx/DC Orders Instructions: ED Chest Pain, Noncardiac Prescriptions: New albuterol sulfate 90 mcg/actuation aerosol powdr breath activated 2 inh inhalation Q4H PRN (Reason: shortness of breath or wheezing) Qty: 1 RF: 0 prednisone 50 mg tablet 50 mg PO DAILY 5 Days Qty: 5 RF: 0 Primary Care Provider: Care Physician,No Primary Referrals: Susana Hernandez MD [STAFF PHYSICIAN] - As Needed Care Physician,No Primary [Primary Care Provider] - Disposition Disposition: Home, Self Care
[2021-08-13 18:49] LABS: Absolute Lymphocyte Count 2.02 X10^3/uL (0.83-4.51); Absolute Neutrophil Count 10.1 X10^3/uL (2.0-7.7); Basophil# 0.04 X10^3/uL; Basophil% 0.3 % (0-1); Eosinophil# 0.66 X10^3/uL; Eosinophils% 4.7 % (0-5); Hematocrit 48.1 % (40-54); Hemoglobin 17.1 g/dL (13.0-16.5); Lymphocyte # 2.02 X10^3/ul (0.83-4.51); Lymphocyte % 14.3 % (19-41); Mean Corp Hgb Conc 35.6 g/dL (32-36); Mean Corpuscular Hgb 30.4 pg (27.0-32.0); Mean Corpuscular Volume 85.6 fL (80-94); Mean Platelet Vol. 8.8 fl (6.2-12.0); Monocyte# 1.26 X10^3/uL; Monocyte% 8.9 % (0-10); NRBC Flagged by Analyzer 0 % (0-5); Neutrophil # 10.11 X10^3/uL (2.7-7.7); Neutrophil % 71.6 % (47-70); Platelet Count 333 K/mm3 (150-450); RBC Distribution Width CV 11.9 % (11.6-14.6); RBC Distribution Width SD 36.4 fl (35.1-43.9); Red Blood Count 5.62 M/mm3 (4.6-6.2); White Blood Count 14.1 K/mm3 (4.4-11.0)
[2021-08-13] MEDS: MethylPREDNISolone 125 MG/2 ML Vial IV (18:55)
[2021-08-13 19:00] LABS: D-Dimer Quantitative (DVT/PE) 0.29 FEU/ug/m (0.27-0.49)
--- NOTE | 2021-08-13 19:00 | RAD_ITS ---
STUDY: X-RAY CHEST REASON FOR EXAM: Male, 21 years old. Chest pain TECHNIQUE: Frontal view COMPARISON: 07/26/2021 FINDINGS: The lungs are clear and expanded. There is no demonstrated pleural abnormality. Normal size heart. Normal mediastinum and codie. Normal visualized pulmonary arteries. Normal visualized aortic arch and descending thoracic aorta. Normal visualized thoracic spine. Normal visualized ribs, clavicles, and shoulders. There is no demonstrated abnormality of the visualized soft tissue structures of the upper abdomen. RAD/Chest 1 View (Portable) IMPRESSION: Normal x-ray examination of the chest. Electronically Signed: Quentin Myles DO at 19:49 EDT Tel [phone], Service support ,
[2021-08-13] MEDS: Albuterol 2.5 MG/3 ML VIAL.NEB. INHALATION (19:03)
[2021-08-13 19:12] LABS: Anion Gap 7 (5-15); BUN 10 mg/dL (7-18); BUN/Creat Ratio 11.9 RATIO (10-20); Calcium,Total 9.3 mg/dL (8.5-10.1); Chloride 102 mmol/L (98-107); Creatinine, Serum 0.84 mg/dL (0.70-1.30); EST Glomerular Filtration Rate 121 mL/min (>60); Est Glom Filt Rate - Afr Amer 146 mL/min (>60); Estimated Creatinine Clearance 155.89 ml/min; Glucose 102 mg/dL (74-106); Potassium 3.8 mmol/L (3.5-5.1); Sodium Level 137 mmol/L (136-145); Troponin-I HS 4 pg/mL (3.0-78.0)
[2021-08-13 19:15] VITALS: PULSE 102; RESP 20
[2021-08-13] MEDS: Ipratropium/Albuterol Sulfate 3 ML AMPUL.NEB INHALATION (19:18)
[2021-08-13 20:46] VITALS: BP 156/97; PULSE 107; RESP 16; O2SAT 94
[2021-08-13 20:49] LABS: Probe Check PASS; Specimen Processing Control PASS
== END 2021-08-13 20:47 | disposition home or self-care (01) ==
PROVIDERS: Emergency Provider Student in an Organized Health Care Education/Training Program
DX: U07.1 COVID-19 (principal); J20.8 Acute bronchitis due to other specified organisms; F17.210 Nicotine dependence, cigarettes, uncomplicated
CPT/HCPCS: 71045; 80048; 84484; 85025; 85379; 87635; 93005; 94640; 96374; 99284; U0005; A4216; U0003

== ENCOUNTER 2022-10-02 16:01 | Emergency (ER) | payer OTHER, SELFPAY ==
[2022-10-02 16:01] VITALS: BP 165/101; PULSE 132; RESP 18; TEMP 36.4; O2SAT 95; BMI 31.1
--- NOTE | 2022-10-02 16:20 | ED.VIS.LOWEX ---
HPI <YANNA Caba - Last Filed: 10/02/22 17:46> History of Present Illness Chief Complaint: Lower Extremity Injury Narrative Narrative: Patient presents today with ecchymosis and edema to his right knee. He states he was drinking last night and fell going up the steps. He denies hitting his head, losing consciousness, and any neck/back pain. He can bear weight onto his knee but states it causes him a lot of pain. He has never injured this knee in the past. He denies any other injuries. PFSH <YANNA Caba - Last Filed: 10/02/22 17:46> COUNTS INCLUDE 234 BEDS AT THE [facility] Medical History Depression History of multiple concussions Schizoaffective disorder Home Medications albuterol sulfate 90 mcg/actuation breath activated powder inhaler 2 inh inhalation Q4H PRN shortness of breath or wheezing #1 ea 08/13/21 [Rx Last Taken Unknown] prednisone 50 mg tablet 50 mg PO DAILY 5 days #5 tabs 08/13/21 [Rx Last Taken Unknown] Allergy/AdvReac Type Severity Reaction Status Date / Time No Known Allergies Allergy Verified 10/02/22 16:01 Social History Smoking Status: Current every day smoker tobacco type: cigarettes ROS <YANNA Caba - Last Filed: 10/02/22 17:46> ROS ED Constitutional Constitutional ED: Denies chills, fever(s) or sweats Eyes Eyes: Denies blurry vision or change in vision ENT ENT ED: Denies dizziness, neck pain, rhinorrhea or sore throat Cardiovascular Cardiovascular: Denies chest pain, palpitations or racing heartbeat Respiratory/Chest Respiratory/Chest: Denies cough, dyspnea, dyspnea on exertion, shortness of breath at rest or shortness of breath with exertion Gastrointestinal Gastrointestinal: Denies abdominal pain, diarrhea, nausea or vomiting Genitourinary Genitourinary ED: Denies dysuria, hematuria or urinary frequency Musculoskeletal Musculoskeletal: Reports joint pain and joint swelling; Denies back pain or neck pain Integumentary Denies abscess, Abrasions or rash Neurologic Neurologic: Denies headache(s), paresthesias or weakness Psychiatric Psychiatric: Denies anxiety or depression EXAM <YANNA Caba - Last Filed: 10/02/22 17:46> Physical Exam Const Vital Signs: 10/02/22 16:01 Temperature 97.6 F L Temperature Source Temporal Pulse Rate 132 H Respiratory Rate 18 Blood Pressure 165/101 H Blood Pressure Mean 122 Pulse Ox 95 Oxygen Delivery Method Room Air Positive well nourished and well developed General Appearance ED: well developed and NAD HEENT Reports moist mucous membranes normocephalic and atraumatic; Negative for tenderness Eyes PERRL and EOMs intact bilaterally Neck full ROM and supple Chest Wall inspection of chest normal Resp normal respiratory effort and clear to auscultation bilaterally Cardio regular rate, regular rhythm and no murmurs GI non-tender, non-distended and no masses Palpation: soft Back/Spine Cervical Spine: Negative for cervical spine tenderness Thoracic Spine / Upper Back: Negative for thoracic spinal tenderness Lumbar Spine / Lower Back: Negative for lumbar spinal tenderness Extremity Extremity Narrative: Patient has an abrasion to his right knee, it is swollen, bruised, and erythemic. He does have full range of motion to his knee but it causes him pain. He is able to bear weight onto his knee. Unable to perform a full knee examination secondary to pain and swelling. Neuro oriented x3, CN's II-XII intact bilaterally, moves all extremities and no sensory deficits noted Sensorium / Orientation: alert Motor Exam: strength 5/5 throughout Psych mental status grossly normal Skin no wounds Lesions: no lesions Rashes: no rashes Trauma: Negative for abrasion <Dr. Bud Grace DO - Last Filed: 10/02/22 18:20> Physical Exam Const Vital Signs: 10/02/22 16:01 Temperature 97.6 F L Temperature Source Temporal Pulse Rate 132 H Respiratory Rate 18 Blood Pressure 165/101 H Blood Pressure Mean 122 Pulse Ox 95 Oxygen Delivery Method Room Air Extremity Extremity Narrative: Patient has an abrasion to his right knee, it is swollen, bruised. He does have full range of motion to his knee but it causes him pain. He is able to bear weight onto his knee. Does not appear to be any ligamentous laxity. Extensor mechanism is intact. MDM <YANNA Caba - Last Filed: 10/02/22 17:46> [facility] MDM Narrative Medical decision making narrative: Patient did not want anything for pain here. I am unable to perform a thorough knee examination due to pain and swelling. He has been given a knee immobilizer and a referral with Dr. Shaw. He does not want crutches. He has been instructed to rest, elevate the extremity, and ice it. He can use Tylenol or ibuprofen as needed for pain. I am comfortable with patient discharging home and patient is comfortable with plan. He has been given return instructions. Radiography Diagnostic Testing: Clinical Impression(s) from Imaging Studies Knee X-Ray 10/02/22 16:25 IMPRESSION: Soft tissue fullness ventral to the quadriceps tendon. No acute osseous injury. Electronically Signed: Lena Foster MD at 16:37 EST , I have reviewed x-ray and I agree with radiologist impressions. This x-ray has also been reviewed by attending ED physician. <Dr. Bud Grace, DO - Last Filed: 10/02/22 18:20> MDM Radiography Diagnostic Testing: Clinical Impression(s) from Imaging Studies Knee X-Ray 10/02/22 16:25 IMPRESSION: Soft tissue fullness ventral to the quadriceps tendon. No acute osseous injury. Electronically Signed: Lena Foster MD at 16:37 EST , Treatment and Re-Evaluation Narrative: This patient was seen with a PA/LABOR RELATIONS SPECIALIST Individually assessed they patient including history and physical. I have reviewed everything on the chart that is available and agree with the documentation provided by the PA/LABOR RELATIONS SPECIALIST including discussion about the assessment, treatment plan, discussion, and return precautions. Patient presenting with right knee pain and swelling. He states he was drinking alcohol last night and fell on the stairs. He cannot exactly describe the mechanism but he thinks he fell and hit the knee directly on the stairs. He woke up this morning was unable to bear weight initially but has been able to bear weight. He does not want anything for pain and refuses even anti-inflammatories. Right knee x-ray obtained and on my interpretation shows no acute fracture or subluxation. There is noted soft tissue swelling. Knee exam was limited secondary to pain and swelling but I suspect he has a ligamentous injury. I will place him in a knee immobilizer and have him follow-up with orthopedic Discharge Plan Triage Chief Complaint: Lower Extremity Injury ED Midlevel Provider: Alice Wade ED Provider: Bud Grace Dx/Rx/DC Orders Clinical Impression: Acute pain of right knee, Knee contusion Instructions: Knee Pain Prescriptions: No Action albuterol sulfate 90 mcg/actuation aerosol powdr breath activated 2 inh inhalation Q4H PRN (Reason: shortness of breath or wheezing) Qty: 1 0RF prednisone 50 mg tablet 50 mg PO DAILY 5 Days Qty: 5 0RF Primary Care Provider: Care Physician,No Primary Referrals: Irving Shaw DO [Med Staff - Active Staff] - 5-7 Days Care Physician,No Primary [Primary Care Provider] - Activity Restrictions/Additional Instructions: Keep your right knee elevated whenever possible and rest to help minimize swelling. You can ice the knee for 10 to 15 minutes 3-4 times a day. Tylenol or ibuprofen can be taken for pain. Please follow-up with specialist for further evaluation of your knee. Disposition Disposition: Home, Self Care Discharge Date/Time: 10/02/22 17:39
--- NOTE | 2022-10-02 16:25 | RAD_ITS ---
INDICATION: injury EXAMINATION/TECHNIQUE: X-RAY - RIGHT XR Knee 3 VIEWS COMPARISON: None. FINDINGS: SOFT TISSUES: There is soft tissue fullness ventral to the quadriceps tendon. No radiopaque foreign body. BONES/JOINTS: No acute fracture or subluxation.. Normal alignment. Preservation of the joint space.. No sclerotic or destructive changes observed. RAD/Knee 3 Views IMPRESSION: Soft tissue fullness ventral to the quadriceps tendon. No acute osseous injury. Electronically Signed: Lena Foster MD at 16:37 EST ,
== END 2022-10-02 17:39 | disposition home or self-care (01) ==
PROVIDERS: Emergency Provider Student in an Organized Health Care Education/Training Program; Visit Provider Student in an Organized Health Care Education/Training Program
DX: S80.00XA Contusion of unspecified knee, initial encounter (principal); F25.9 Schizoaffective disorder, unspecified; F17.210 Nicotine dependence, cigarettes, uncomplicated; M25.561 Pain in right knee; F32.A Depression, unspecified; W10.9XXA Fall (on) (from) unspecified stairs and steps, initial encounter
CPT/HCPCS: 73562; 99283

== ENCOUNTER 2022-12-23 07:04 | Emergency (ER) | payer OTHER, MEDICAID, SELFPAY ==
[2022-12-23 07:05] VITALS: BP 153/109; PULSE 101; RESP 16; TEMP 36.4; O2SAT 98; BMI 31.8
--- NOTE | 2022-12-23 07:39 | EKG12_ITS ---
Test Reason : CP Blood Pressure : / mmHG Vent. Rate : 074 BPM Atrial Rate : 074 BPM P-R Int : 142 ms QRS Dur : 086 ms QT Int : 374 ms P-R-T Axes : 055 041 027 degrees QTc Int : 415 ms Normal sinus rhythm Normal ECG Confirmed by AMADA CHEUNG, FRITZ ([id number]), advertising editor COLEEN CHILDRESS ([id number]) on 12/24/2022 12:42:30 PM Referred By: CLINT Confirmed By:FRITZ YBARRA MD
--- NOTE | 2022-12-23 07:39 | RAD_ITS ---
STUDY: X-RAY CHEST REASON FOR EXAM: Male, 22 years old. Chest pain TECHNIQUE: Single AP portable view of the chest. COMPARISON: Comparison is made with prior study dated 08/13/2021. FINDINGS: EKG electrodes are seen. The lungs are clear and expanded. There is no demonstrated pleural abnormality. Normal size heart. Normal mediastinum and codei. Normal visualized pulmonary arteries. Normal visualized aortic arch and descending thoracic aorta. Normal visualized thoracic spine. Normal visualized ribs, clavicles, and shoulders. There is no demonstrated abnormality of the visualized soft tissue structures of the upper abdomen. RAD/Chest 1 View (Portable) IMPRESSION: Normal x-ray examination of the chest. Electronically Signed: Shay Mckinley MD at 8:11 EST ,
[2022-12-23 07:44] VITALS: O2SAT 98
[2022-12-23] MEDS: Aspirin 81 MG TAB.CHEW 324 MG PO (07:47)
[2022-12-23 07:59] LABS: Absolute Lymphocyte Count 3.01 X10^3/uL (0.83-4.51); Absolute Neutrophil Count 4.4 X10^3/uL (2.0-7.7); Basophil# 0.05 X10^3/uL; Basophil% 0.6 % (0-1); Eosinophil# 0.45 X10^3/uL; Eosinophils% 5.3 % (0-5); Hematocrit 44.4 % (40-54); Hemoglobin 15.5 g/dL (13.0-16.5); Lymphocyte # 3.01 X10^3/ul (0.83-4.51); Lymphocyte % 35.1 % (19-41); Mean Corp Hgb Conc 34.9 g/dL (32-36); Mean Corpuscular Volume 88.8 fL (80-94); Mean Platelet Vol. 8.9 fl (6.2-12.0); Monocyte# 0.66 X10^3/uL; Monocyte% 7.7 % (0-10); NRBC Flagged by Analyzer 0 % (0-5); Neutrophil # 4.37 X10^3/uL (2.7-7.7); Neutrophil % 50.9 % (47-70); Platelet Count 351 K/mm3 (150-450); RBC Distribution Width CV 11.9 % (11.6-14.6); RBC Distribution Width SD 38.4 fl (35.1-43.9); White Blood Count 8.6 K/mm3 (4.4-11.0)
--- NOTE | 2022-12-23 08:00 | ED.VIS.CHEST ---
HPI History of Present Illness Chief Complaint: Chest Pain Informant: patient Onset/Context/Timing Onset: Today Activity at onset: sudden Timing: Continuous Quality: Positive for Pressure and Tightness Location: Substernal, Right Parasternal, Left Parasternal, Right Chest and Left Chest Worsened By: Nothing Relieved By: Nothing Associated Symptoms: Positive for Dyspnea and Palpitations; Negative for Nausea, Vomiting, Diaphoresis, Cough, Fever, Lightheadedness or Acid Reflux Narrative Narrative: Patient with chest pain that began this morning. Patient states he woke up and was having some pain in his back. Patient states he rolled over and started having some pain in his chest. Patient states it began rather suddenly. Patient states it feels like a tightness and pressure. Patient states it is diffuse across his chest. Patient states nothing makes it better nothing makes it worse. Patient admits to some shortness of breath with this. Patient states he also feels like his heart is racing at times. Patient denies any nausea or vomiting. Patient denies any diaphoresis. Patient denies any cough or fevers. Patient is a smoker. Patient denies any other cardiac or PE risk factors. Patient states his pain resolved in the car on the way to the emergency department. CVD Risk Factors: Positive for Smoking; Negative for Hypertension, Diabetes or Hypercholesterolemia PE Risk Factors: Negative for Recent Travel/Surgery, Recent Immobilization, Prior DVT or PE, Cancer or OCP + Smoking + >/=35 PFSH PFSH Medical History Depression History of multiple concussions Schizoaffective disorder Home Medications NK 12/23/22 [History Last Taken Unknown] Allergy/AdvReac Type Severity Reaction Status Date / Time No Known Allergies Allergy Verified 12/23/22 07:07 Social History Smoking Status: Current every day smoker tobacco type: cigarettes ROS ROS ED Constitutional Constitutional ED: Denies chills or fever(s) Eyes Eyes: Denies blurry vision or change in vision ENT ENT ED: Denies rhinorrhea or sore throat Cardiovascular Cardiovascular: Reports chest pain, palpitations and racing heartbeat Respiratory/Chest Respiratory/Chest: Reports dyspnea; Denies cough Gastrointestinal Gastrointestinal: Denies abdominal pain, nausea or vomiting Genitourinary Genitourinary ED: Denies dysuria or hematuria Musculoskeletal Musculoskeletal: Reports back pain; Denies neck pain Integumentary Denies abscess or rash Neurologic Neurologic: Denies headache(s) or weakness Allergic/Immunologic Allergic/Immunologic ED: Denies mouth swelling or urticaria EXAM Physical Exam Const Vital Signs: 12/23/22 07:05 12/23/22 07:13 12/23/22 07:44 Temperature 97.6 F L Temperature Source Temporal Pulse Rate 101 H Respiratory Rate 16 Respiratory Effort Normal Non-Labored Blood Pressure 153/109 H Blood Pressure Mean 123 Pulse Ox 98 98 Oxygen Delivery Method Room Air Room Air 12/23/22 10:14 12/23/22 11:34 Temperature Temperature Source Pulse Rate 72 64 Respiratory Rate 16 18 Respiratory Effort Blood Pressure 121/79 H 126/73 H Blood Pressure Mean 93 90 Pulse Ox 98 96 Oxygen Delivery Method Room Air Room Air Positive well nourished, well developed, obese and unkempt General Appearance ED: unkempt, well developed and NAD Nutritional Appearance: obese HEENT normocephalic and atraumatic Eyes PERRL and EOMs intact bilaterally Neck supple and no JVD Chest Wall palpation of chest normal Resp normal respiratory effort and clear to auscultation bilaterally Effort and Inspection: Negative for respiratory distress Cardio regular rate, regular rhythm and no murmurs GI normal to inspection, nondistended, normoactive bowel sounds, soft to palpation, non-tender and non-distended Extremity normal to inspection General Extremety ED: Negative for edema or tenderness General Extremity: Negative for edema Neuro oriented x3, CN's II-XII intact bilaterally and no sensory deficits noted Sensorium / Orientation: awake and alert Motor Exam: strength 5/5 throughout Psych mental status grossly normal Appearance: unkempt Heart Score History: Slightly/Non-Suspicious ECG: Normal Age: </= 45 years Risk Factors: 1 or 2 Risk Factors Troponin: </= Normal Limit Score: 1 MDM MDM MDM Narrative Medical decision making narrative: Differential diagnosis includes cardiac dysrhythmia, cardiac ischemia, pneumonia, pneumothorax, pericarditis, pulmonary embolism, and viral infection. EKG will be obtained to assess for cardiac dysrhythmia and cardiac ischemia. Basic metabolic profile will be obtained to assess for electrolyte abnormality and renal function. CBC will be obtained to assess for leukocytosis and anemia. Troponin will be obtained to assess for cardiac ischemia. D-dimer will be obtained to assess for pulmonary embolism. Chest x-ray will be obtained to assess for pneumonia and pneumothorax. Lab Data Attestation: I reviewed the patient's lab results. Lab results narrative: CBC was reviewed and was within normal limits. D-dimer was reviewed and was normal. Basic metabolic profile was reviewed and was essentially within normal limits. High-sensitivity troponin was reviewed and was negative. 2-hour repeat high-sensitivity troponin was reviewed and was negative. Labs: Laboratory Results - last 24 hr 12/23/22 12/23/22 12/23/22 07:53 07:53 08:45 WBC 8.6 RBC 5.00 Hgb 15.5 Hct 44.4 MCV 88.8 MCH 31.0 MCHC 34.9 RDW Std Deviation 38.4 RDW Coeff of Abran 11.9 Plt Count 351 MPV 8.9 Immature Gran % (Auto) 0.400 Neut % (Auto) 50.9 Lymph % (Auto) 35.1 [place] % (Auto) 7.7 Eos % (Auto) 5.3 H Baso % (Auto) 0.6 Absolute Neuts (auto) 4.4 Absolute Lymphs (auto) 3.01 Nucleated RBC % 0 D-Dimer Quant (PE/DVT) < 0.27 L Sodium 141 Potassium 3.9 Chloride 107 Carbon Dioxide 29.0 Anion Gap 5 BUN 19 H Creatinine 0.74 Estim Creat Clear Calc 175.46 Est GFR (MDRD) Af Amer 167 Est GFR (MDRD) Non-Af 138 BUN/Creatinine Ratio 25.6 H Glucose 161 H Calcium 9.4 Troponin I High Sens 4 12/23/22 10:13 WBC RBC Hgb Hct MCV MCH MCHC RDW Std Deviation RDW Coeff of Abran Plt Count MPV Immature Gran % (Auto) Neut % (Auto) Lymph % (Auto) [place] % (Auto) Eos % (Auto) Baso % (Auto) Absolute Neuts (auto) Absolute Lymphs (auto) Nucleated RBC % D-Dimer Quant (PE/DVT) Sodium Potassium Chloride Carbon Dioxide Anion Gap BUN Creatinine Estim Creat Clear Calc Est GFR (MDRD) Af Amer Est GFR (MDRD) Non-Af BUN/Creatinine Ratio Glucose Calcium Troponin I High Sens < 3 L Radiography Diagnostic Testing: Clinical Impression(s) from Imaging Studies Chest X-Ray 12/23/22 07:39 IMPRESSION: Normal x-ray examination of the chest. Electronically Signed: Shay Mckinley MD at 8:11 EST , Portable 1 view chest x-ray was obtained. On my independent interpretation, lung mcdonald are clear. There is normal cardiac silhouette. Bony thorax is normal. There is no acute process noted. Radiologist also interpreted the x-ray and agrees. EKG Initial EKG: Attestation: I personally reviewed and interpreted this EKG as follows: Interpretation: Sinus Rhythm (74) and No Acute Injury Pattern Comments: EKG was obtained. On my independent interpretation, it showed a normal sinus rhythm with a rate of 74. HI interval, QRS interval, and QTc intervals were all normal. [place] was normal. There are no acute ST or T wave changes. Prior EKG tracings: available for review Prior: Unchanged (08/13/2021) Treatment and Re-Evaluation Narrative: Patient was given aspirin here. Patient is feeling better on reevaluation. Patient was advised of his findings. Patient has a HEART score of 1. Patient was advised that this is low risk for acute cardiac event. Patient was instructed to follow-up with his primary care physician in 5 to 7 days. Patient was instructed return if worse in any way. Patient understood and was agreeable with the plan. All questions were answered. Discharge Plan Triage Chief Complaint: Chest Pain ED Provider: Arie Rosales Dx/Rx/DC Orders Clinical Impression: Chest pain, Tobacco use Instructions: ED Chest Pain, Uncertain Cause Prescriptions: No Action NK Primary Care Provider: Care Physician,No Primary Referrals: Delmi Linton MD [Med Staff - [employer]] - 3-5 Days Care Physician,No Primary [Primary Care Provider] - Disposition Disposition: Home, Self Care
[2022-12-23 08:17] LABS: Anion Gap 5 (5-15); BUN 19 mg/dL (7-18); BUN/Creat Ratio 25.6 RATIO (10-20); Calcium,Total 9.4 mg/dL (8.5-10.1); Chloride 107 mmol/L (98-107); Creatinine, Serum 0.74 mg/dL (0.70-1.30); EST Glomerular Filtration Rate 138 mL/min (>60); Est Glom Filt Rate - Afr Amer 167 mL/min (>60); Estimated Creatinine Clearance 175.46 ml/min; Glucose 161 mg/dL (74-106); Potassium 3.9 mmol/L (3.5-5.1); Sodium Level 141 mmol/L (136-145); Troponin-I HS (w/2H Reflex) 4 pg/mL (3.0-78.0)
[2022-12-23 09:18] LABS: D-Dimer Quantitative (DVT/PE) < 0.27 FEU/ug/m (0.27-0.49)
[2022-12-23 09:57] LABS: Reflex Troponin-HS? (from REC) Y
[2022-12-23 10:14] VITALS: BP 121/79; PULSE 72; RESP 16; O2SAT 98
[2022-12-23 10:35] LABS: Troponin-I HS < 3 pg/mL (3.0-78.0)
[2022-12-23 11:34] VITALS: BP 126/73; PULSE 64; RESP 18; O2SAT 96
--- NOTE | 2022-12-23 11:41 | CM.ED ---
Note Referral Source: Case Find Referral Reason: No Primary Care Physician (PCP) SW reviewed chart and noted that patient has no PCP. SW provided patient with list of [facility] and [facility] Physician List for reference. No other issues or concerns voiced at this time. SW remains available for any additional needs. Plan: Provided patient with PCP information Cynthia WHEATLEY
[2022-12-23 11:50] VITALS: BP 128/73; PULSE 71; RESP 16; O2SAT 96
== END 2022-12-23 11:51 | disposition home or self-care (01) ==
PROVIDERS: Emergency Provider Emergency Medicine; Visit Provider Emergency Medicine
DX: R07.9 Chest pain, unspecified (principal); F17.210 Nicotine dependence, cigarettes, uncomplicated
CPT/HCPCS: 71045; 80048; 84484; 85025; 85379; 93005; 99284; A4216

== ENCOUNTER 2025-07-25 12:51 | Emergency (ER) | payer MEDICAID, SELFPAY ==
[2025-07-25 12:51] VITALS: BP 152/109; PULSE 100; RESP 18; TEMP 36.6; O2SAT 98; BMI 33.5
--- NOTE | 2025-07-25 13:21 | ED.VIS.BACK ---
HPI History of Present Illness Chief Complaint: Back Informant: patient Onset/Context/Timing Onset: Yesterday Context: Gradual Onset Timing: Continuous Quality: Sharp and - (Stabbing) Location: Lumbar, Buttock and Left Leg Worsened by: improves with Ambulation Relieved by: Medications (Tylenol) Associated Symptoms Associated Symptoms: Radiation to Left Leg; Negative for Numbness, Tingling, Radiation to Right Leg, Fever, Abdominal Pain, Dysuria, Unable to Ambulate, Unable to Transfer, Urinary Retention, Urinary Incontinence, Constipation or Fecal Incontinence Narrative Narrative: Patient presents with back pain that began yesterday evening. Patient states it gradually got worse throughout the night. Patient states it is constant. Patient describes it as sharp and stabbing. Patient states it is over the left lower lumbar area and posterior left hip and radiates to his posterior left thigh. Patient states he took some Tylenol last night which did help. Patient denies any bowel or bladder changes. Patient denies any saddle anesthesia. Patient denies any paresthesias or weakness. Patient states his pain sometimes is worse with ambulating. Patient denies any trauma or injury. [facility] Medical History Addiction DDD (degenerative disc disease) History of multiple concussions Depression Schizoaffective disorder Home Medications ?Medication ?Instructions ?Recorded ?Last Taken ?Type cyclobenzaprine 10 mg tablet 10 mg PO QHS PRN PRN Muscle Spasm 07/25/25 Unknown Rx #10 TABLETS naproxen 500 mg tablet 500 mg PO BID PRN #20 tabs 07/25/25 Unknown Rx Allergy/AdvReac Type Severity Reaction Status Date / Time No Known Allergies Allergy Verified 07/25/25 12:57 Social History Smoking Status: Current every day smoker tobacco type: cigarettes ROS ROS ED Constitutional Constitutional ED: Denies chills or fever(s) Eyes Eyes: Denies blurry vision or change in vision ENT ENT ED: Denies rhinorrhea or sore throat Cardiovascular Cardiovascular: Denies chest pain or palpitations Respiratory/Chest Respiratory/Chest: Denies cough or dyspnea Gastrointestinal Gastrointestinal: Denies nausea or vomiting Genitourinary Genitourinary ED: Denies dysuria or hematuria Musculoskeletal Musculoskeletal: Reports back pain; Denies neck pain Integumentary Denies abscess or rash Neurologic Neurologic: Denies headache(s) or weakness Allergic/Immunologic Allergic/Immunologic ED: Denies mouth swelling or urticaria EXAM Physical Exam Const Vital Signs: 07/25/25 12:51 Temperature 98 F Temperature Source Temporal Pulse Rate 100 Respiratory Rate 18 Blood Pressure 152/109 H Blood Pressure Mean 123 Pulse Ox 98 Oxygen Delivery Method Room Air Positive well nourished and well developed Constitutional Narrative: BMI is 33.5. General Appearance ED: well developed and NAD HEENT Reports moist mucous membranes Neck supple and no JVD Back/Spine Back/Spine Narrative: There is tenderness and spasm of the left lower lumbar paraspinal muscles. There is tenderness over the posterior aspect of the left hip and sciatic notch. There is no midline tenderness. There is no bony crepitance or step-off. Range of motion was limited in all motions of the lumbar spine secondary to pain. Straight leg raises were negative bilaterally. Lumbar Spine / Lower Back: ROM limited and straight leg raise negative bilaterally Extremity normal to inspection General Extremety ED: Negative for edema or tenderness General Extremity: Negative for edema Neuro oriented x3 and no sensory deficits noted Sensorium / Orientation: alert Motor Exam: strength 5/5 throughout Deep Tendon Reflexes: Rt Patellar (L4): 2+, Lt Patellar (L4): 2+, Rt Ankle (S1): 2+ and Lt Ankle (S1): 2+ Deep Tendon Reflexes Back: Rt Patellar (L4): 2+, Lt Patellar (L4): 2+, Rt Ankle (S1): 2+ and Lt Ankle (S1): 2+ Psych mental status grossly normal MDM MDM MDM Narrative Medical decision making narrative: Patient was advised that this is likely a flareup of his sciatica. Patient was given injection of Toradol and Norflex here. Patient was given prescriptions for Naprosyn and Flexeril. Patient was instructed to use ice to the area. Patient was instructed to follow-up with his primary care physician in 5 to 7 days for further evaluation. Patient understood and was agreeable with the plan. All questions were answered. Discharge Plan Triage Chief Complaint: Back ED Provider: Arie Rosales Dx/Rx/DC Orders Clinical Impression: Acute low back pain, Sciatica of left side Instructions: ED Sciatica Prescriptions: New cyclobenzaprine 10 mg tablet 10 mg PO QHS PRN PRN (Reason: Muscle Spasm) Qty: 10 0RF naproxen 500 mg tablet 500 mg PO BID PRN Qty: 20 0RF Primary Care Provider: Aracely Gregg Referrals: Care Physician,No Primary [Non-Staff, Medical] Aracely Gregg, [employer] [Primary Care Provider, Internal Medicine] - 5-7 Days Print Language: Divehi Disposition Disposition: Home, Self Care
[2025-07-25] MEDS: Orphenadrine 60 MG/2 ML Ampul IM (13:38)
[2025-07-25 13:43] VITALS: BP 147/106; PULSE 107; RESP 18; TEMP 36.8; O2SAT 95
== END 2025-07-25 14:03 | disposition home or self-care (01) ==
PROVIDERS: Emergency Provider Emergency Medicine; PCP Nurse Practitioner Family; Visit Provider Emergency Medicine
DX: M54.42 Lumbago with sciatica, left side (principal); F25.9 Schizoaffective disorder, unspecified; F17.210 Nicotine dependence, cigarettes, uncomplicated
CPT/HCPCS: 96372; 99282